=== PATIENT | male | born 1985 | race Two or more races ===

== ENCOUNTER 2019-02-16 13:25 | Observation (INO) | payer OTHER ==
[~2019-02-16] VITALS: Ht 160 cm; Wt 75.3 kg
[2019-02-16] MEDS ORDERED: AMLO10TA8 PO (13:26)
[2019-02-16] MEDS ORDERED: ceFAZolin 1GM IVPB FOR OMNI 1 GM/50 ML BAG IV ONE (13:28)
[2019-02-16] MEDS: IV RINGERS,LACTATED 1000ML 1,000 ML IV SCH (14:04)
[2019-02-16] MEDS ORDERED: OXYMETAZOLINE 0.05% NASAL SPRAY 30ML BOTTLE. NS ONE (16:09)
[2019-02-16] MEDS ORDERED: BUPIVAC MPF-EPI 0.5%-1:200000 30 ML VIAL. ONE (16:38)
[2019-02-16] MEDS ORDERED: SURGICEL HEMOSTAT 2X3 EACH. ONE (16:38)
[2019-02-16] MEDS ORDERED: ONDANSETRON PF 4 MG/2 ML VIAL. IV PRN ×2 (17:00→17:30)
[2019-02-16] MEDS ORDERED: oxyCODONE/APAP 5/325 1 TAB TABLET PO PRN ×2 (17:00→17:30)
[2019-02-16] MEDS ORDERED: IV RINGERS,LACTATED 1000ML 1,000 ML IV SCH (17:21)
[2019-02-16] MEDS ORDERED: MORPHINE SULFATE 2 MG/ML VIAL. IV PRN (17:30)
[2019-02-16] MEDS ORDERED: PROCHLORPERAZINE 10 MG/2 ML VIAL. IV PRN (17:30)
[2019-02-16] MEDS ORDERED: LIDOCAINE 1% PF 2 ML VIAL. ID PRN (17:30)
[2019-02-16] MEDS ORDERED: HYDROmorphone 2 MG/ML VIAL IV PRN (17:30)
[2019-02-16] MEDS ORDERED: fentaNYL PF VIAL 100 MCG/2 ML VIAL IV PRN ×2 (17:30)
[2019-02-16] MEDS ORDERED: fentaNYL PF VIAL 100 MCG/2 ML VIAL ONE (17:32)
[2019-02-16] MEDS ORDERED: DEXAMETHASONE SOD PHOS 4 MG/ML VIAL ONE ×5 (17:51→18:12)
[2019-02-16] MEDS ORDERED: DESFLURANE > 120 MINUTES IH ONE (18:15)
[2019-02-16] MEDS ORDERED: LIDOCAINE 2% PF 5 ML VIAL. ONE (18:15)
[2019-02-16] MEDS ORDERED: PROPOFOL 20 ML IV ONE (18:15)
[2019-02-16] MEDS ORDERED: SURGICEL HEMOSTAT 4X8 EACH. TP ONE (18:16)
[2019-02-16] MEDS ORDERED: KETOROLAC 30 MG/ML INJ FOR OR. INJ ONE (18:16)
[2019-02-16] MEDS ORDERED: ONDANSETRON PF 4 MG/2 ML VIAL. ONE (18:16)
[2019-02-16] MEDS ORDERED: BACITRACIN 50,000 UNIT in IV NORMAL SALINE 500ML BAG 500 ML IRR ONE ×2 (19:00→21:00)
[2019-02-16] MEDS ORDERED: REMIFENTANIL 1 MG VIAL. IV ONE (19:23)
[2019-02-16] MEDS ORDERED: ROCURONIUM 50 MG/5 ML VIAL. ONE (19:24)
[2019-02-16] MEDS ORDERED: LIDOCAINE 1%/EPI 1:100,000 20 ML VIAL. ONE (20:59)
[2019-02-16] MEDS: FAMOTIDINE 20 MG TABLET. PO SCH (21:00)
[2019-02-16] MEDS: CHLORHEXIDINE 0.12% 15 ML MOUTHWASH. SWSP SCH (21:00)
[2019-02-16] MEDS ORDERED: GLYCOPYRROLATE 1 MG/5 ML VIAL. ONE (21:24)
[2019-02-16] MEDS ORDERED: NEOSTIGMINE METHYLSULFATE 5 MG/5 ML SYRINGE. ONE (21:24)
[2019-02-16] MEDS ORDERED: PHENYLEPHRINE in 0.9% NACL PF 1 MG/10 ML SYRINGE. IV ONE (21:42)
[2019-02-16] MEDS: PIPERACILLIN/TAZOBACTAM 3.375 GM in IV NORMAL SALINE 50ML 50 ML IV SCH (21:55)
[2019-02-16] MEDS ORDERED: PIPERACILLIN/TAZOBACTAM 3.375 GM in IV NORMAL SALINE 50ML 50 ML IV ONE (22:00)
[2019-02-16] MEDS ORDERED: BACITRACIN TOPICAL OINT 14GM TUBE. TP SCH (22:15)
--- NOTE | 2019-02-16 23:06 | PDOC4 ---
OPERATIVE NOTE Date: Date: Feb 16, 2019 Pre-Op Diagnosis: mandible fractures right/symphysis fracture left angle fracture Post-Op Diagnosis: mandible fractures right/symphysis fracture (comminuted) left angle fracture Procedure Performed: ORIF mandible fractures right/symphysis fracture left angle fracture Sx extraction of 16 & 17 Surgeon: shamar Anesthesia Type: perry/grzegorz Blood Loss: 150 Specimans Obtained: none teeth disposed of in OR # 16, 17 Findings: see dictation Complications: none Operative Note: see dictation PRAVEEN STEVE DMD Feb 16, 2019 23:06
[2019-02-16] MEDS ORDERED: IBUPROFEN 200 MG TABLET. PO PRN (23:30)
[2019-02-16 23:45] VITALS: BP 144/84
[2019-02-17] VITALS (7 sets, daily range): BP systolic 136–150; BP diastolic 78–89
[2019-02-17] MEDS: IV NORMAL SALINE 1000ML BAG 1,000 ML IV SCH ×3 (00:04→10:43)
--- NOTE | 2019-02-17 00:34 | OP ---
DATE OF SURGERY: 02/16/2019 AGE: A 33-year-old male. OPERATING SERVICE: retail support specialist. ATTENDING PHYSICIAN: Guicho Steve DMD. PREOPERATIVE DIAGNOSES: Mandible fractures. 1. Right/parasymphysis fracture. 2. Left angle fracture and tooth #17 within the line of fracture and 16 was overriding the intraoral laceration from the mandible fracture of the left mandibular angle. POSTOPERATIVE DIAGNOSES: Mandible fractures. 1. Right/parasymphysis fracture. The right parasymphysis fracture was found to be comminuted. 2. Left angle fracture and tooth #17 within the line of fracture and 16 was overriding the intraoral laceration from the mandible fracture of the left mandibular angle. PROCEDURES PERFORMED: ORIF with percutaneous neck approach to the right symphysis fracture and the left angle fracture and surgical removal of teeth #16 and 17. BRIEF HISTORY: The patient is a 33-year-old male who was referred to my clinic as a trauma patient from the [facility]. He reported to our clinic with significant edema of floor of mouth and buccal edema. His intraoral laceration wound and nature of his kildwcofm-fr-ribgidkkzw displaced fractures precluded a preferred approach of a closed reduction. His significant edema precluded an optimal reduction and fixation with an intraoral approach. We discussed with him percutaneous neck approach. The patient was affable with our plan. History and physical and permit were obtained. The patient was scheduled for surgery the same day in order to accommodate the fdc and these open fractures. ESTIMATED BLOOD LOSS: Approximately 150 mL. SPECIMEN SENT: None. Teeth #16 and 17 were disposed off in the OR. DRAINS PLACED: None. COMPLICATIONS: None noted at the time of surgery. OPERATIVE DESCRIPTION: After the history and physical was updated in the preoperative holding area, the patient was transported by the Anesthesia Service to the operating suite and placed in the supine position. General anesthesia was induced and nasal SERENA intubation was placed without complication and secured with a traditional oral and maxillofacial surgeon turban head wrap. Surgical timeout was performed and all preoperative staff was in agreement. The patient was prepped and draped in the normal sterile fashion. A moistened throat pack was placed. The teeth were cleansed with Peridex. The occlusion was evaluated and found that this would be a reasonable candidate to proceed with normal intervention. Approximately 20 mL of 0.5% Marcaine with 1:200,000 epinephrine were administered into the skin of the iodine-prepped neck. An additional 10 mL were administered intraorally afterwards. An additional 20 mL of 1% lidocaine with 1:100,000 epinephrine were administered at the culmination of the procedure into the surgical field. Surgery began with the marking of a natural skin crease with curvilinear incision approximately 2 to 2.5 cm inferior to the inferior border of the mandible. There was a step on the left side to accommodate a more anterior approach and this incision would allow for access to both fractures simultaneously. This would avoid incongruent surgical approaches and allow for better access to both. The 15 blade was utilized to make a skin incision and subcutaneous fascia and a percutaneous fat and the Bovie electrocautery was utilized to divide through the subcutaneous tissue down to the platysma. The platysma was divided with Metzenbaum and blunt dissection and assisted with Bovie electrocautery as needed for hemostasis. The dissection continued to the superficial layer of the deep cervical fascia. This exposed the submandibular gland. This layer was proceeded to be elevated and the dissection continued superiorly to the inferior border of the mandible. The facial artery and vein were identified and ligated with clips. The periosteum was reflected off the mandible and this dissection was carried from the left angle to the right and beyond the right symphysis fracture. The fracture was noted to be comminuted at the right symphysis at this time. This was not clearly evident on the radiographic x-rays preoperatively. Once the surgical sites were exposed, the Matrix maxillomandibular fixation set was brought to the field and two 7-hole screw hole plates were adapted to the maxilla and the mandible without complication and were locked securely into position. These were utilized to reduce the occlusion with 22-gauge fish wires. The occlusions appeared to be stable and the patient's [place] premorbid occlusion. The tension band was now set. Attention was then redirected to the inferior border through the neck percutaneous incision. Gloves were changed and the local surgical field was redraped with additional towels and instruments were wiped clean with Betadine and bacitracin irrigation. Two holes were drilled at the inferior border of the mandible and the bone reduction clamp was placed. A 2.0 tension band was placed with monocortical 5.0 screws. These were placed ultimately with locking screws. A 2.5 plate was also adapted, approximately 9 holes, was adapted to the inferior border and the lateral surface of the inferior border of the mandible. Bone was contoured with an egg-shaped bur to idealize the flattened contour to accommodate the plate with limited intervention. This plate was first drilled with non-locking screws on either side of the fracture and ultimately replaced with nonlocking screws and, I believe, 7 screws were adapted into this 9-hole plate and large area had to be jumped to accommodate the comminution of the fracture. This area was well adapted and locked into position. Attention was then directed to the left angle fracture, where a bone clamp and an angled 2.5 mm locking reconstruction plate was utilized to reduce and fixate the left angle fracture and then 6 locking screws were ultimately placed in that, which were, I believe, 9 mm in length. The area was lavaged with copious normal sterile saline. Attention was then redirected to the oral cavity, where the the wires were removed and the dentition and occlusion were evaluated. Occlusion was stable and repeatable and appeared to represent the patient's premorbid occlusion. Attention was then directed back to the neck, where the entirety of the wound was lavaged with copious normal sterile saline and suctioned. Closure began in layers with closing the periosteum, re-suspending the platysma in the fascia and reapproximating the continuous tissue and ultimately closure with 4-0 Prolene sutures. The deep sutures were closed with 3-0 Vicryl and 4-0 Vicryls in that order. The oral cavity was lavaged and suctioned and the moistened throat pack was removed. Elastics were placed on the sides to allow for guidance for the patient and the Matrix Hybrid system was allowed to remain in the patient's mouth. The wound was dressed with Telfa and Kerlix roll for a pressure dressing, which will remain for 24 hours. The patient was then returned to the care of Anesthesia, where he was awakened and extubated without complication and transported to the PACU in a stable condition. GUICHO STEVE DMD DR: Fiona JOB#: [id number] / [id number]
[2019-02-17] MEDS: MORPHINE SULFATE 2 MG/ML VIAL. IV PRN ×3 (00:40→08:12)
--- NOTE | 2019-02-17 03:22 | NUR ---
pt arrived to unit at 2340 via bed from PACU in stable condition. pt is drowsy but oriented. pt is rating his pain 8/10. speech is garbled due to being rubberbanded together. pt is continuing to spit up small amounts of blood and has suction at bedside. pt is on RA. received report from CLAUDE Nuno in PACU. will continue to monitor.
[2019-02-17] MEDS: IV RINGERS,LACTATED 1000ML 1,000 ML IV SCH ×2 (03:34→10:43)
[2019-02-17] MEDS: PIPERACILLIN/TAZOBACTAM 3.375 GM in IV NORMAL SALINE 50ML 50 ML IV SCH ×4 (05:53→10:43)
[2019-02-17] MEDS ORDERED: BACITRACIN 50,000 UNIT in IV NORMAL SALINE 500ML BAG 500 ML IRR ONE (06:00)
[2019-02-17] MEDS ORDERED: DEXAMETHASONE SOD PHOS 20 MG/5 ML VIAL. IV ONE (08:00)
[2019-02-17] MEDS: CHLORHEXIDINE 0.12% 15 ML MOUTHWASH. SWSP SCH (08:11)
--- NOTE | 2019-02-17 08:45 | RAD ---
EXAM: CT facial bones without contrast. HISTORY: Mandibular fracture fixation. TECHNIQUE: CT of the facial bones was performed without intravenous contrast. COMPARISON: None. FINDINGS: There are changes of internal fixation of mandibular fractures along the left angle and right body. Alignment is anatomic. Fixation is also noted along the teeth. Soft tissue gas and edema along the floor mouth and both cheeks is likely postoperative. There is a small mucus retention cyst in the right maxillary sinus. There are no additional facial fractures. Images of the orbits and brain reveal no abnormality. The proximal cervical spine appears normal. IMPRESSION: 1. Internal fixation of mandibular fractures in expected alignment. *One or more of the following individualized dose reduction techniques were utilized for this examination: 1. Automated exposure control. 2. Adjustment of the mA and/or kV according to patient size. 3. Use of iterative reconstruction technique. Electronically signed by: Liza Rosas MD (02/17/2019 8:42 AM) [facility]
--- NOTE | 2019-02-17 08:54 | PDOC ---
GENERAL General: Pt AAO X3 NAEO Post op imaging taken Patient conversant, comfortable in bed. Guard at bedside Patient taking PO, passing gas Problems: (1) Mandible open fracture VITAL SIGNS Vital Signs: Vital Signs Date Time Temp Pulse Resp B/P (MAP) Pulse Ox O2 Delivery O2 Flow Rate FiO2 02/17/19 08:12 94 Room Air 02/17/19 07:00 97.8 88 18 140/87 (104) 97.8 02/16/19 22:58 15 I & O I & O Intake and Output 02/17/19 07:00 Intake Total 950 ml Output Total 1125 ml Balance -175 ml Intake IV Total 950 ml Output Urine Total 975 ml Estimated Blood Loss 150 ml # Voids 1 ALLERGIES Allergies: Allergies Coded Allergies Type Severity Reaction Last Updated Verified No Known Drug Allergies 02/16/19 No MEDS Medications: Current Medications Medications (Trade) Dose Ordered Sig/Barb Start Time Stop Time Status Last Admin Dose Admin Bacitracin 1 matt ONCE 02/16/19 22:15 02/16/19 22:21 1 MATT Bacitracin 25467 unit/Sodium Chloride 500 ml @ 500 mls/hr 1X ONCE 02/16/19 21:00 02/16/19 21:59 DC 02/16/19 21:26 Bupivacaine HCl/ Epinephrine Bitart (Sensorcain-Mpf Epi 0.5%-1:585105) 30 ml STK-MED ONCE 02/16/19 16:38 02/16/19 18:05 DC 02/16/19 18:16 30 ML Cefazolin Sodium (Ancef 1gm Ivpb For Omni) 1 gm STK-MED ONCE 02/16/19 13:28 02/17/19 08:15 DC Cellulose (Surgicel Hemostat 2x3) 1 each STK-MED ONCE 02/16/19 16:38 02/16/19 18:05 DC Cellulose (Surgicel Hemostat 4x8) 1 each STK-MED ONCE 02/16/19 18:16 02/16/19 18:55 DC 02/16/19 18:16 1 EACH Chlorhexidine Gluconate (Peridex) 15 ml BID 02/16/19 21:00 02/17/19 08:11 15 ML Desflurane (Suprane) 90 ml STK-MED ONCE 02/16/19 18:15 02/16/19 18:16 DC Dexamethasone Sodium Phosphate (Decadron) 20 mg 1X ONCE 02/17/19 08:00 02/17/19 08:01 DC 02/17/19 08:11 20 MG Famotidine (Pepcid) 20 mg BID 02/16/19 21:00 Fentanyl Citrate (Fentanyl 2ml Vial) 100 mcg STK-MED ONCE 02/16/19 17:32 02/16/19 18:05 DC Glycopyrrolate (Robinul) 1 mg STK-MED ONCE 02/16/19 21:24 02/16/19 21:25 DC Hydromorphone HCl (Dilaudid) 0.5 mg PRN Q10MIN PRN 02/16/19 17:30 02/17/19 17:29 Ibuprofen (Motrin) 600 mg PRN Q6HRS PRN 02/16/19 23:30 Ketorolac Tromethamine (Toradol For Or Only) 30 mg STK-MED ONCE 02/16/19 18:16 02/16/19 18:17 DC Lidocaine HCl (Lidocaine Pf 2% Vial) 5 ml STK-MED ONCE 02/16/19 18:15 02/16/19 18:16 DC Lidocaine HCl (Xylocaine-Mpf 1% 2ml Vial) 2 ml PRN 1X PRN 02/16/19 17:30 02/17/19 17:29 Lidocaine/ Epinephrine (LIDOCAINE 1%-EPI 1:100,000 Multi-Dose) 20 ml STK-MED ONCE 02/16/19 20:59 02/16/19 22:00 DC 02/16/19 22:20 20 ML Morphine Sulfate (Morphine Sulfate) 1 mg PRN Q10MIN PRN 02/16/19 17:30 02/17/19 17:29 Neostigmine Methylsulfate (Neostigmine Methylsulfate) 5 mg STK-MED ONCE 02/16/19 21:24 02/16/19 21:25 DC Ondansetron HCl (Zofran) 4 mg STK-MED ONCE 02/16/19 18:16 02/16/19 18:17 DC Oxycodone/ Acetaminophen (Percocet 5/325) 2 tab PRN Q6HRS PRN 02/16/19 17:30 Oxymetazoline HCl (Afrin) 120 spray STK-MED ONCE 02/16/19 16:09 02/16/19 18:05 DC Phenylephrine HCl (PHENYLEPHRINE in 0.9% NACL PF) 1 mg STK-MED ONCE 02/16/19 21:42 02/16/19 21:43 DC Piperacillin Sod/ Tazobactam Sod 3.375 gm/Sodium Chloride 50 ml @ 100 mls/hr ONCE ONCE 02/16/19 22:00 02/16/19 22:29 Cancel Prochlorperazine Edisylate (Compazine) 5 mg PACU PRN PRN 02/16/19 17:30 02/17/19 17:29 Propofol 20 ml @ As Directed STK-MED ONCE 02/16/19 18:15 02/16/19 18:16 DC Remifentanil HCl (Ultiva) 1 mg STK-MED ONCE 02/16/19 19:23 02/16/19 19:24 DC Ringer's Solution 1,000 ml @ 30 mls/hr Q24H 02/16/19 17:21 02/17/19 05:20 DC Rocuronium [place] (Zemuron) 50 mg STK-MED ONCE 02/16/19 19:24 02/16/19 19:25 DC Sodium Chloride 1,000 ml @ 100 mls/hr Q10H 02/16/19 17:30 02/17/19 00:04 100 MLS/HR IMAGING Imaging: Post op CT demonstrates hardware in place, and appropriate reduction of mandible fractures ASSESSMENT & PLAN A&P A/P 33 yom s/p Blunt force trauma and open mandible fractures HD 2 POD 1 Patient appears to be recovering well this morning with pain managed with PO Medication Plan for D/C today to [facility] to continue his post op care in their medical snider. Problem Qualifiers (1) Mandible open fracture: Mandible location: angle Laterality: left CARD,PRAVEEN Estrada DMD Feb 17, 2019 08:54
[2019-02-17] MEDS: FAMOTIDINE 20 MG TABLET. PO SCH (09:00)
--- NOTE | 2019-02-17 09:43 | DS ---
DATE OF DISCHARGE: 02/17/2019 DISCHARGE DIAGNOSES: 1. Mandible fractures right/symphysis mandible fracture that is open. 2. Left angle fracture that is open and tooth #17 was in the line of fracture and nonrestorable, teeth #16 and #17. PROCEDURES PERFORMED: On 02/16/2019 was ORIF of mandible fractures and surgical removal of teeth #16 and #17. COMPLICATIONS: None. CONSULTATIONS: Admitted for postop management. PERTINENT HISTORY: The patient is a 33-year-old male with status post alleged fall in shower and some sort of blunt force trauma that resulted in bilateral mandible fractures. LABS: None pertinent. CONDITION ON DISCHARGE: Stable. DISPOSITION: The patient is affable taking p.o. without complication. Discharged to [facility]. DIET: Full liquid diet. ACTIVITY: Ad tracy. No strenuous exercise or contact sports for 2 months. FOLLOWUP: Followup will be on 02/23/[address] Chani DMD, [id number], at our facility. Our office number is [phone]. DISCHARGE MEDICATIONS: Prescriptions are: 1. Peridex mouthwash rinse b.i.d. for 2 months. 2. Amoxicillin 500 mg, count #15, 1 p.o. t.i.d. until gone. 3. Motrin 600 mg 1 p.o. q.6h p.r.n. pain. 4. [place] 5/325 1 p.o. q.6h p.r.n. pain. 5. Bacitracin ointment to clean neck wound and apply after cleaning the neck wound b.i.d. for 7 days. PRAVEEN STEVE DMD DR: CARLOZ/ce JOB#: [id number] / [id number]
--- NOTE | 2019-02-17 12:50 | NUR ---
Discharge Note: NAMRATA BLOOM MOROCCO Discharge instructions and discharge home medications reviewed with Other facility and a copy given. All questions have been answered and understanding verbalized. Per [facility] in CM report given to facility, this RN does not need to call to give report. The following instructions and handouts were given: discharge instructions, etc. Discontinued lines and drains: IV line in left hand removed, catheter tip intact. Patient discharged to [facility] with guard, patient ambulated to discharge vehicle.
== END 2019-02-17 12:50 | disposition short-term general hospital (02) ==
LOC: SURG 13:25 → EEVIPCON 16:58 → 4 NORTH 16:58
PROVIDERS: ADMIT Dentist Oral and Maxillofacial Surgery; ATTEND Dentist Oral and Maxillofacial Surgery
DX: S02.652B Fracture of angle of left mandible, initial encounter for open fracture (principal); I10 Essential (primary) hypertension; S02.66XB Fracture of symphysis of mandible, initial encounter for open fracture; X58.XXXA Exposure to other specified factors, initial encounter; Y93.89 Activity, other specified; Y99.8 Other external cause status; Y92.89 Other specified places as the place of occurrence of the external cause
CPT/HCPCS: 21461; 41899; 70486; 96365; 96366; 96375; 96376; A7015; C1713; G0378; G0379; J0690; J1100; J1885; J2001; J2270; J2370; J2405; J2543; J2704; J2710; J3010; J3490; J7030; J7040; J7120; A4461